=== PATIENT | female | born 1945 | race Caucasian/White ===

== ENCOUNTER → 2018-02-26 | Outpatient (CLI) | payer MEDICARE, OTHER ==
[2018-02-26 13:35] LABS: BLOOD UREA NITROGEN 12 mg/dL (7-20)
[2018-02-26 13:35] LABS: CREATININE 0.9 mg/dL (0.6-1.0); GFR 61.2
[2018-02-26] MEDS: GADOBUTROL 10 MMOL/10 ML VIAL IV (14:15)
== END | disposition home or self-care (01) ==
LOC: MRI 12:38
DX: I63.8 Other cerebral infarction (principal); H53.9 Unspecified visual disturbance; R51 Headache
CPT/HCPCS: 36415; 70544; 70549; 70551; 82565; 84520; A9585